=== PATIENT | male | born 1955 | race American Indian/Alaskan Native ===

== ENCOUNTER 2017-06-08 11:18 | Emergency (ER) | payer BC, OTHER ==
[2017-06-08 11:22] VITALS: BP 121/77; PULSE 65; TEMP 97.7; BMI 25.0
[2017-06-08] MEDS ORDERED: KETOROLAC TROMETHAMINE 60 MG/2 ML VIAL IM ONE (12:20)
[2017-06-08] MEDS ORDERED: KETOROLAC TROMETHAMINE 60 MG/2 ML VIAL ONE (12:25)
--- NOTE | 2017-06-08 12:26 | PDOC ---
History of Present Illness - General Chief Complaint: Pain, Acute Stated Complaint: leg pain Time Seen by Provider: 06/08/17 11:58 History Source: Patient, Family Exam Limitations: No Limitations - History of Present Illness Initial Comments: 06/08/17 12:21 c/o pain with radiation down lateral and Posterior aspect of left leg. States has been told some years ago after MRI last year that he had degenerative joint disease of his back and also his left knee. Dr. Gomez was the orthopedist who performed a meniscectomy and scoping at this knee last year but stated would probably be progressive degenerative disease. Patient states one week ago increased some weight lifting at the gym and since that time has had some worsened pain in his low back with radiating to left leg. Denies numbness or tingling to foot, denies any problems with bowel or bladder, denies fevers or other illness. Occurred: reports: last week Severity: reports: moderate, severe Pain Location: reports: lower extremity (left leg ) Loss of Consciousness: no loss of consciousness Associated Symptoms (Fall): denies symptoms Past History - Travel Traveled outside of the country in the last 30 days: No Close contact w/someone who was outside of country & ill: No - Past Medical History Allergies/Adverse Reactions: Allergies Allergy/AdvReac Type Severity Reaction Status Date / Time No Known Allergies Allergy Verified 06/08/17 11:22 Home Medications: Ambulatory Orders Cyclobenzaprine HCl [Flexeril 10 mg] 10 mg PO BID PRN #14 tablet 06/08/17 Insulin Regular [NOVOLIN R VIAL *IVPUSH / ER / ICU Only*] 0 units SQ TID Naproxen [Naprosyn -] 500 mg PO BID #20 tablet 06/08/17 COPD: No Diabetes: Yes Other medical history: sciatica - Suicide/Smoking/Psychosocial Hx Smoking History: Never smoked Information on smoking cessation initiated: No Hx Alcohol Use: No Drug/Substance Use Hx: No Substance Use Type: None Review of Systems - Review of Systems Able to Perform ROS?: Yes Is the patient limited Mohawk proficient: Yes Constitutional: Yes: Symptoms Reported, See HPI, Malaise. No: Fever HEENTM: No: Symptoms Reported Respiratory: Yes: Symptoms reported, See HPI Musculoskeletal: Yes: Symptoms Reported, See HPI, Back Pain, Joint Pain (left knee), Joint Swelling All Other Systems: Reviewed and Negative *Physical Exam - Vital Signs Last Vital Signs Temp Pulse Resp BP Pulse Ox 97.7 F 65 18 121/77 100 06/08/17 11:20 06/08/17 11:20 06/08/17 11:20 06/08/17 11:20 06/08/17 11:20 - Physical Exam General Appearance: Yes: Nourished, Appropriately Dressed HEENT: positive: REN, Normal ENT Inspection, TMs Normal, Pharynx Normal Neck: positive: Supple. negative: Tender Respiratory/Chest: positive: Lungs Clear, Normal Breath Sounds Musculoskeletal: positive: Normal Inspection, Other (tension to lumbar paravertebral spine ). negative: CVA Tenderness (L), Vertebral Tenderness Extremity: positive: Normal Capillary Refill. negative: Normal Range of Motion (limited ROM with ballotment to left superior knee, + dJD changes and tender along lateral and posterior aspect ) Integumentary: positive: Normal Color, Dry, Warm, Pale Neurologic: positive: contact lens polisher II-XII NML intact, Fully Oriented, Alert, Normal Mood/ Affect, Normal Response, Motor Strength 5/5 Progress Note - Progress Note Progress Note: Sciatica, will treat with NSAIDS and cyclobenzaprine, F/U with Dr Rizzo *DC/Admit/Observation/Transfer Diagnosis at time of Disposition: Sciatica of left side - Discharge Dispostion Disposition: HOME Condition at time of disposition: Stable Admit: No - Referrals Referrals: Asa Browning MD [Primary Care Provider] - Titi Rizzo MD [Staff Physician] - - Patient Instructions Printed Discharge Instructions: DI for Sciatica Additional Instructions: Rest, no heavy lifting or exercise until pain is resolved Hot soaks to neck and low back as often as possible/hot showers or Jacuzzis No massage or therapy until spasm is gone Continue Naprosyn 500 mg tablet every 8 hours for the next 3 days then as needed for pain and swelling Cyclobenzaprine 1-10mg every 8 hours as needed for spasm If not significant improvement within 24 hours with medication and rest regime, followup with private physician for change in medications and /or therapy. - Post Discharge Activity Forms/Work/School Notes: Back to Work
== END 2017-06-08 12:38 | disposition home or self-care (01) ==
LOC: JERFT 11:18
PROC: 3E0233Z Introduction of Anti-inflammatory into Muscle, Percutaneous Approach (ICD-10-PCS; principal; 2017-06-08)
DX: M54.42 Lumbago with sciatica, left side (principal)
CPT/HCPCS: 99281-25

== ENCOUNTER 2017-06-21 23:14 | Observation (INO) | payer BC, OTHER ==
[2017-06-21 23:27] VITALS: BMI 25.0
--- NOTE | 2017-06-21 23:41 | PDOC ---
History of Present Illness - General History Source: Patient Exam Limitations: No Limitations - History of Present Illness Initial Comments: 06/21/17 23:52 The patient is a 62 year old male with a significant past medical history of sciatica and diabetes who presents to the ED with complaints of left leg pain for several days. The patient was recently seen in the ED on 06/08 for similar symptoms. He reports sharp left sided left pain starting at his left buttock and radiating down his left leg. He also reports worsening chronic bilateral knee pain and right sided shoulder pain. Patient states he has an appointment with his orthopedist on Thursday. Denies fever or chills. Denies focal numbness, weakness, or tingling. Denies chest pain or shortness of breath. Denies any other symptoms. <Jonelle Fajardo - Last Filed: 06/21/17 23:52> <Marlee Márquez - Last Filed: 06/22/17 02:09> - General Chief Complaint: Pain, Acute Stated Complaint: PAIN Time Seen by Provider: 06/21/17 23:34 Past History <Jonelle Fajardo - Last Filed: 06/21/17 23:52> - Past Medical History COPD: No Diabetes: Yes - Suicide/Smoking/Psychosocial Hx Smoking History: Never smoked Have you smoked in the past 12 months: No Information on smoking cessation initiated: No Hx Alcohol Use: No Drug/Substance Use Hx: No Substance Use Type: None <Marlee Márquez - Last Filed: 06/22/17 02:09> - Past Medical History Allergies/Adverse Reactions: Allergies Allergy/AdvReac Type Severity Reaction Status Date / Time No Known Allergies Allergy Verified 06/21/17 23:22 Home Medications: Ambulatory Orders Insulin Regular [NOVOLIN R VIAL *IVPUSH / ER / ICU Only*] 0 units SQ TID Metformin HCl 500 mg PO DAILY 06/22/17 Review of Systems - Review of Systems Able to Perform ROS?: Yes Comments:: 06/21/17 23:52 CONSTITUTIONAL: Absent: fever, chills, diaphoresis, generalized weakness, malaise, loss of appetite HEENT: Absent: rhinorrhea, nasal congestion, throat pain, throat swelling, difficulty swallowing, mouth swelling, ear pain, eye pain, visual Changes CARDIOVASCULAR: Absent: chest pain, syncope, palpitations, irregular heart rate, lightheadedness , peripheral edema RESPIRATORY: Absent: cough, shortness of breath, dyspnea with exertion, orthopnea, wheezing, stridor, hemoptysis GASTROINTESTINAL: Absent: abdominal pain, abdominal distension, nausea, vomiting, diarrhea, constipation, melena, hematochezia GENITOURINARY: Absent: dysuria, frequency, urgency, hesitancy, hematuria, flank pain, genital pain MUSCULOSKELETAL: + leg pain, knee pain, shoulder pain Absent: joint swelling SKIN: Absent: rash, itching, pallor HEMATOLOGIC/IMMUNOLOGIC: Absent: easy bleeding, easy bruising, lymphadenopathy, frequent infections ENDOCRINE: Absent: unexplained weight gain, unexplained weight loss, heat intolerance, cold intolerance NEUROLOGIC: Absent: headache, focal weakness or paresthesias, dizziness, unsteady gait, seizure, mental status changes, bladder or bowel incontinence PSYCHIATRIC: Absent: anxiety, depression, suicidal or homicidal ideation, hallucinations. All Other Systems: Reviewed and Negative <Jonelle Fajardo - Last Filed: 06/21/17 23:52> *Physical Exam - Vital Signs Last Vital Signs Temp Pulse Resp BP Pulse Ox 98 F 75 20 133/75 95 06/21/17 23:22 06/21/17 23:22 06/21/17 23:22 06/21/17 23:22 06/21/17 23:22 - Physical Exam Comments: 06/21/17 23:52 GENERAL: Well developed, well nourished. Awake and alert. No acute distress. HEENT: Normocephalic, atraumatic. PERRLA, EOMI. No conjunctival pallor. Sclera are non- icteric. Moist mucous membranes. Oropharynx is clear. NECK: Supple. Full ROM. No JVD. Carotid pulses 2+ and symmetric, without bruits. No thyromegaly. NCo lymphadenopathy. CARDIOVASCULAR: Regular rate and rhythm. No murmurs, rubs, or gallops. Distal pulses are 2+ and symmetric. PULMONARY: No evidence of respiratory distress. Lungs clear to auscultation bilaterally. No wheezing, rales or rhonchi. ABDOMINAL: Soft. Non-tender. Non-distended. No rebound or guarding. No organomegaly. Normoactive bowel sounds. MUSCULOSKELETAL: + chronic right shoulder pain, pain from left buttock radiating down left leg Normal range of motion at all joints. No bony deformities or tenderness. No CVA tenderness. EXTREMITIES: No cyanosis. No clubbing. No edema. No calf tenderness. SKIN: Warm and dry. Normal capillary refill. No rashes. No jaundice. NEUROLOGICAL: Alert, awake, appropriate. Cranial nerves 2-12 intact. No deficits to light touch and temperature in face, upper extremities and lower extremities. No motor deficits in the in face, upper extremities and lower extremities. Normoreflexic in the upper and lower extremities. Normal speech. Toes are down- going bilaterally. Gait is normal without ataxia. PSYCHIATRIC: Cooperative. Good eye contact. Appropriate mood and affect. <Jonelle Fajardo - Last Filed: 06/21/17 23:52> - Vital Signs Last Vital Signs Temp Pulse Resp BP Pulse Ox 98 F 75 20 133/75 95 06/21/17 23:22 06/21/17 23:22 06/21/17 23:22 06/21/17 23:22 06/21/17 23:22 <Marlee Márquez - Last Filed: 06/22/17 02:09> ED Treatment Course - LABORATORY CBC & Chemistry Diagram: 06/22/17 01:00 06/22/17 01:00 <Marlee Márquez - Last Filed: 06/22/17 02:09> *DC/Admit/Observation/Transfer - Attestations Scribe Attestion: 06/21/17 23:53 Documentation prepared by Jonelle Fajardo, acting as medical billing associate for Marlee Márquez MD <Jonelle Fajardo - Last Filed: 06/21/17 23:52> - Discharge Dispostion Admit: Yes <Marlee Márquez - Last Filed: 06/22/17 02:09> Diagnosis at time of Disposition: Sciatica of left side, Intractable low back pain - Referrals Referrals: Asa Browning MD [Primary Care Provider] - - Patient Instructions - Post Discharge Activity
[2017-06-21] MEDS ORDERED: KETOROLAC TROMETHAMINE 60 MG/2 ML VIAL IM ONE (23:44)
[2017-06-21] MEDS ORDERED: diazePAM 2 MG TABLET PO ONE (23:45)
[2017-06-21] MEDS ORDERED: diazePAM 2 MG TABLET ONE (23:57)
[2017-06-21] MEDS ORDERED: KETOROLAC TROMETHAMINE 60 MG/2 ML VIAL ONE (23:57)
[2017-06-22 01:12] LABS: BASOPHIL 0.6 % (0-2.0); EOSINOPHIL 2.1 % (0-4.5); MCHC 33.8 g/dl (32.0-35.9); MEAN CELL VOLUME 88.7 fl (80-96); MEAN PLT VOLUME 9.1 fl (7.5-11.1); NEUTROPHILS 70.9 % (42.8-82.8); PLATELET COUNT 205 K/MM3 (134-434); RDW 12.2 % (11.9-15.9); WHITE BLOOD COUNT 10.1 K/mm3 (4.0-10.0)
[2017-06-22 01:25] LABS: INR 1.18 (0.82-1.09); PROTHROMBIN TIME (PATIENT) 13.3 SEC (9.98-11.88)
[2017-06-22 02:02] LABS: ALBUMIN 3.3 g/dl (3.4-5.0); ALK PHOS 84 U/L (45-117); ANION GAP 6 (8-16); BILIRUBIN,TOTAL 0.3 mg/dL (0.2-1.0); CALCIUM 8.7 mg/dL (8.5-10.1); CO2 32 mmol/L (21-32); CREATININE 0.8 mg/dL (0.7-1.3); GLUCOSE,RANDOM 220 mg/dL (74-106); SGOT/AST 15 U/L (15-37); SGPT/ALT 24 U/L (12-78); TOT PROT 6.6 g/dl (6.4-8.2)
--- NOTE | 2017-06-22 02:24 | PN ---
Teaching Attending Note Name of Resident: Paxton Mccann ATTENDING PHYSICIAN STATEMENT I saw and evaluated the patient. I reviewed the resident's note and discussed the case with the resident. I agree with the resident's findings and plan as documented. SUBJECTIVE: 62 yo M with pmhx of Sciatica and DM who presents with Left lower back pain radiating down his leg. States pain is sharp and 10/10. Does not note any recent injuries. Also has chronic pain in his bilateral knes and right shoulder. No chest pain, pressure or shortnes of breath. No loss of bowel or bladder function. No fevers or chills. OBJECTIVE: Physical: Vs: Vital Signs Period Temp Pulse Resp BP Sys/Howard Pulse Ox Last 24 Hr 98 F-98.5 F 62-75 16-20 110-133/60-75 95-95 GEN: NAD, resting in bed, AAoX3 HEENT: NCAT, PERRL, Throat without erythema or exudates CARD: RRR S1, S2 RESP: CTAB ABD: BSx4, NTD to palpation EXT: Left leg MS +3/5, unable to do straight leg raise without pain, RLE - C/C/E CBCD WBC 10.1 K/mm3 (4.0-10.0) H 06/22/17 01:00 RBC 4.72 M/mm3 (4.00-5.60) 06/22/17 01:00 Hgb 14.1 GM/dL (11.7-16.9) 06/22/17 01:00 Hct 41.9 % (35.4-49) 06/22/17 01:00 MCV 88.7 fl (80-96) 06/22/17 01:00 MCHC 33.8 g/dl (32.0-35.9) 06/22/17 01:00 RDW 12.2 % (11.9-15.9) 06/22/17 01:00 Plt Count 205 K/MM3 (134-434) 06/22/17 01:00 MPV 9.1 fl (7.5-11.1) 06/22/17 01:00 CMP Sodium 139 mmol/L (136-145) 06/22/17 01:00 Potassium 4.0 mmol/L (3.5-5.1) 06/22/17 01:00 Chloride 101 mmol/L (98-107) 06/22/17 01:00 Carbon Dioxide 32 mmol/L (21-32) 06/22/17 01:00 Anion Gap 6 (8-16) L 06/22/17 01:00 BUN 11 mg/dL (7-18) 06/22/17 01:00 Creatinine 0.8 mg/dL (0.7-1.3) 06/22/17 01:00 Creat Clearance w eGFR > 60 (>60) 06/22/17 01:00 Random Glucose 220 mg/dL (74-106) H 06/22/17 01:00 Calcium 8.7 mg/dL (8.5-10.1) 06/22/17 01:00 Total Bilirubin 0.3 mg/dL (0.2-1.0) 06/22/17 01:00 AST 15 U/L (15-37) 06/22/17 01:00 ALT 24 U/L (12-78) 06/22/17 01:00 Alkaline Phosphatase 84 U/L (45-117) 06/22/17 01:00 Total Protein 6.6 g/dl (6.4-8.2) 06/22/17 01:00 Albumin 3.3 g/dl (3.4-5.0) L 06/22/17 01:00 EKG: NSR ASSESSMENT AND PLAN: 62 yo M with pmhx of Sciatica and DM who presents with Left lower back pain radiating down his leg 1.) Left Leg Pain DDx: Sciatica vs. Lumbar disc disease - MRI L/S spine - Ortho consulted 2.) DM - FS - RAISS 3.) Dvt ppx - Low Risk-Scds Place in Obs
--- NOTE | 2017-06-22 02:38 | HP ---
CHIEF COMPLAINT: LLE pain PCP: HISTORY OF PRESENT ILLNESS: 62yo M with a history of DM (on 40U insulin HS and metformin) and known sciatica who presents to the ED with LLE pain for several days. Pt describes pain as starting in L posterior hip with radiation down through his leg to his ankle. Pt was preivously here on 06/08/17 with the same type of pain and was sent home with an outpatient f/u to see Dr. Rizzo. Pt now reports the pain has increased to the point where he has slight limitations in walking. Pt normally walks without any assistance. Pt denies fever/chills, loss of sensations, urinary difficulties, difficulties with BM (with last BM being yesterday normal in character without blood), CP/discomfort, SOB. ER course was notable for: (1) Toradol 60 Injection x1; Morphine 4mg x1 PAST MEDICAL HISTORY: DM Sciatica PAST SURGICAL HISTORY: L knee meniscuscopy L tendon repair Social History: Smoking: Denies Alcohol: Denies Drugs: Denies Family History: Deferred Allergies No Known Allergies Allergy (Verified 06/21/17 23:22) HOME MEDICATIONS: Home Medications Medication Instructions Recorded Insulin Regular [NOVOLIN R VIAL 0 units SQ TID 06/08/17 *IVPUSH / ER / ICU Only*] Metformin HCl 500 mg PO DAILY 06/22/17 REVIEW OF SYSTEMS CONSTITUTIONAL: Absent: fever, chills, diaphoresis, malaise, loss of appetite, weight change HEENT: Absent: rhinorrhea, nasal congestion, throat pain, throat swelling, difficulty swallowing, mouth swelling, ear pain, eye pain, visual changes CARDIOVASCULAR: Absent: chest pain, syncope, palpitations, irregular heart rate, lightheadedness , peripheral edema RESPIRATORY: Absent: cough, shortness of breath, dyspnea with exertion, orthopnea, wheezing, stridor, hemoptysis GASTROINTESTINAL: Absent: abdominal pain, abdominal distension, nausea, vomiting, diarrhea, constipation, melena, hematochezia GENITOURINARY: Absent: dysuria, frequency, urgency, hesitancy, hematuria, flank pain, genital pain MUSCULOSKELETAL: Absent: myalgia, arthralgia, joint swelling, back pain, neck pain ENDOCRINE: Absent: unexplained weight gain, unexplained weight loss, heat intolerance, cold intolerance NEUROLOGIC: Present: Weakness, unsteady gait Absent: headache, paresthesias, dizziness, seizure, mental status changes, bladder or bowel incontinence PSYCHIATRIC: Absent: anxiety, depression, suicidal or homicidal ideation, hallucinations. PHYSICAL EXAMINATION Vital Signs - 24 hr 06/21/17 06/22/17 23:22 02:28 Temperature 98 F 98.5 F Pulse Rate 75 Pulse Rate [ 62 Radial] Respiratory 20 16 Rate Blood Pressure 133/75 Blood Pressure 110/60 [Left Arm] O2 Sat by Pulse 95 95 Oximetry (%) GENERAL: NAD, Awake, alert, and fully oriented HEENT: NC/AT, No JVD, moist mucosa, no scleral icterus or injections noted LUNGS: CTA bilaterally. No wheezes, rhonchi, rales. No accessory muscle use. HEART: RRR, normal S1 and S2 without murmur ABDOMEN: Soft, nontender, nondistended, normoactive bowel sounds, no guarding. No hepatomegaly. MUSCULOSKELETAL: Normal range of motion at all joints. No bony deformities or tenderness. No CVA tenderness. EXTREMITIES: 2+ DP pulses, warm, no peripheral edema. NEUROLOGICAL: Nonfocal. Normal speech. Strength 4/5 in L leg flexion compared to 5/5 in R limited due to pain. 5/5 in dorsal and plantar flexion b/l. Sensation intact b/l PSYCHIATRIC: Cooperative. Good eye contact. Appropriate mood and affect. SKIN: Warm, no rashes or lesions noted Laboratory Results - last 24 hr 06/22/17 06/22/17 06/22/17 01:00 01:00 01:00 WBC 10.1 H RBC 4.72 Hgb 14.1 Hct 41.9 MCV 88.7 MCH 30.0 MCHC 33.8 RDW 12.2 Plt Count 205 MPV 9.1 Neutrophils % 70.9 Lymphocytes % 18.6 Monocytes % 7.8 Eosinophils % 2.1 Basophils % 0.6 PT with INR 13.30 H INR 1.18 H Sodium 139 Potassium 4.0 Chloride 101 Carbon Dioxide 32 Anion Gap 6 L BUN 11 Creatinine 0.8 Creat Clearance w eGFR > 60 Random Glucose 220 H Calcium 8.7 Total Bilirubin 0.3 AST 15 ALT 24 Alkaline Phosphatase 84 Total Protein 6.6 Albumin 3.3 L ASSESSMENT/PLAN: 62yo M with a history of DM (on 40U insulin HS and metformin) and known sciatica found to have increased LLE pain. MRI awaiting. 1) L sciatica vs. DDD (degen disc dz) --Pain control with 0.5mg Morphine IVP q6 PRN (6-10 pain scale) --Lumbar Spine MRI w/o contrast --Ortho consulted --Pt had outpt office visit planned for Friday 06/22 2) DM --BGM ACHS --ISS Coverage FEN: Fluids: tolerating PO; not indicated Electrolyte abnormalities: None currently Nutrition: Diabetic diet PPx DVT - low - early ambulation/SCDs Dispo: place in obs Visit type - Emergency Visit Emergency Visit: Yes ED Registration Date: 06/22/17 Care time: The patient presented to the Emergency Department on the above date and was hospitalized for further evaluation of their emergent condition. - New Patient This patient is new to me today: Yes Date on this admission: 06/22/17 - Critical Care Critical Care patient: No
[2017-06-22] MEDS ORDERED: KETOROLAC TROMETHAMINE 30 MG/1 ML VIAL IM PRN (02:41)
[2017-06-22] MEDS ORDERED: morphine SULFATE 4 MG/ML VIAL IVPUSH ONE (02:47)
[2017-06-22] MEDS ORDERED: morphine SULFATE 4 MG/ML VIAL IVPUSH PRN (02:48)
[2017-06-22] MEDS ORDERED: diphenhydrAMINE HCL 25 MG CAPSULE (FP) PO ONE (04:37)
[2017-06-22] MEDS: INSULIN SLIDING SCALE (NOVOLOG) 1 VIAL SQ SCH ×4 (06:46→21:04)
[2017-06-22] MEDS ORDERED: diazePAM 2 MG TABLET PO ONE (06:55)
[2017-06-22] MEDS ORDERED: metFORMIN HCL 500 MG TABLET (FP) PO SCH (07:00)
[2017-06-22] MEDS ORDERED: ACETAMINOPHEN 325 MG TABLET (FP) PO PRN (07:58)
--- NOTE | 2017-06-22 08:42 | CON.ORTH ---
Consult Reason for Consultation:: LBP, left hip, left knee pain - Alcohol/Substance Use Hx Alcohol Use: No - Smoking History Smoking history: Never smoked Have you smoked in the past 12 months: No Aproximately how many cigarettes per day: 0 Home Medications - Allergies Allergies/Adverse Reactions: Allergies Allergy/AdvReac Type Severity Reaction Status Date / Time No Known Allergies Allergy Verified 06/21/17 23:22 - Home Medications Home Medications: Ambulatory Orders Diclofenac Sodium [Vopac Mds] 500 tab PO TID 06/22/17 Insulin Glargine,Hum.rec.anlog [Lantus (nf)] 40 units SQ HS 06/22/17 Metformin HCl 500 mg PO DAILY 06/22/17 Physical Exam for Ortho Vital Signs: Vital Signs Temperature 98.3 F 06/22/17 04:27 Pulse Rate 65 06/22/17 04:27 Respiratory Rate 18 06/22/17 04:27 Blood Pressure 116/65 06/22/17 04:27 O2 Sat by Pulse Oximetry (%) 95 06/22/17 02:28 Labs: CBC, BMP 06/22/17 01:00 06/22/17 01:00 INR, PTT INR 1.18 (0.82-1.09) H 06/22/17 01:00 - Lower Extremity Hip: Yes: Left, Decreased ROM, Pain, Swelling, Other (nvi) Knee: Yes: Left, Limited ROM, Pain, Swelling, Tenderness, Other (nvi) Assessment/Plan 62 year old male with a significant past medical history of sciatica and diabetes who presents to the ED with complaints of left leg pain for several days. The patient was recently seen in the ED on 06/08 for similar symptoms. He reports sharp left sided left pain starting at his left buttock and radiating down his left leg. He also reports worsening left knee pain in which he had surgery on years ago. Pt states that currently his knee is causing more pain. Denies and bowel/bladder dysfunction. 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 a/p- Left hip and knee pain- possible DJD, L4-5 HNP xrays of hip and knee ordered LS MRI pain control PT eval will follow after imaging performed d/w Dr. Rizzo
[2017-06-22] MEDS: oxyCODONE HCL 5 MG TABLET PO PRN ×3 (10:50→22:52)
[2017-06-22 11:58] LABS: URINE APPEARANCE SLCLOUDY; URINE BILIRUBIN NEGATIVE (NEGATIVE); URINE BLOOD NEGATIVE (NEGATIVE); URINE COLOR YELLOW; URINE GLUCOSE (UA) 1+ (NEGATIVE); URINE KETONE TRACE (NEGATIVE); URINE LEUK ESTERASE NEGATIVE (NEGATIVE); URINE NITRITE NEGATIVE (NEGATIVE); URINE PROTEIN NEGATIVE (NEGATIVE); URINE UROBILINOGEN NEGATIVE mg/dL (0.2-1.0)
--- NOTE | 2017-06-22 14:56 | EKG ---
Test Reason : Blood Pressure : / mmHG Vent. Rate : 068 BPM Atrial Rate : 068 BPM P-R Int : 172 ms QRS Dur : 084 ms QT Int : 386 ms P-R-T Axes : 064 076 053 degrees QTc Int : 410 ms NORMAL SINUS RHYTHM NORMAL ECG WHEN COMPARED WITH ECG OF 04-MAY-2007 21:17, NO SIGNIFICANT CHANGE WAS FOUND Confirmed by NATTY SCOTT MD ([id number]) on 06/22/2017 2:56:00 PM Referred By: Confirmed By:NATTY SCOTT MD
[2017-06-22 15:58] LABS: URINE LEUK ESTERASE NEGATIVE (NEGATIVE)
[2017-06-22] MEDS ORDERED: diazePAM 5 MG TABLET PO ONE (19:00)
[2017-06-22] MEDS ORDERED: MELATONIN 5 MG TABLETS PO PRN (20:05)
[2017-06-22] MEDS ORDERED: INSULIN (NOVOLOG) ASPART 100 UNITS/ML 10ML VIAL ONE (20:35)
[2017-06-23] MEDS: INSULIN SLIDING SCALE (NOVOLOG) 1 VIAL SQ SCH ×3 (06:48→17:42)
[2017-06-23] MEDS: oxyCODONE HCL 5 MG TABLET PO PRN (08:37)
[2017-06-23] MEDS ORDERED: PT OWN MED DRAWER 7, Y5N ONE (12:10)
[2017-06-23] MEDS ORDERED: INSULIN (NOVOLOG) ASPART 100 UNITS/ML 10ML VIAL ONE (12:11)
--- NOTE | 2017-06-23 14:48 | PN ---
Progress Note (short form) - Note Progress Note: Ortho Pt seen and examined feeling slightly better today MRI- L3-4 stenosis, hnp, L4-5 stenosis, hnp left knee- severe grade 4 medial djd left hip- mild djd a/p d/w pt and in detail pain management possible injection for LS spine cortisone injection for left knee, can be done as outpt november d/c from ortho pov d/w Dr. Rizzo
[2017-06-23 14:59] VITALS: BP 128/71; PULSE 77; TEMP 98.6
--- NOTE | 2017-06-23 16:17 | DS ---
Physical Exam: SUBJECTIVE: Patient seen and examined. His pain is now constant, however tolerable, he is able to stand and ambulate with assistance. OBJECTIVE: Vital Signs Period Temp Pulse Resp BP Sys/Howard Pulse Ox Last 24 Hr 98 F-98.6 F 63-88 18-20 106-133/63-71 96-96 Pe Neuro: alert, awake, cn 2-12intact Pulm: CTAB CV: s1 s2 rrr no mrg Abd: s nt nd + bs Ext: L knee medial swelling, + mild tenderness MSK: L posterior pelvic tenderness referring down quad to knee, no swelling Laboratory Results - last 24 hr 06/22/17 06/22/17 06/23/17 18:02 20:55 06:47 POC Glucometer 178 256 142 06/23/17 12:08 POC Glucometer 354 HOSPITAL COURSE: Date of Admission:06/22/17 Date of Discharge: 06/23/17 Minutes to complete discharge: 38 Discharge Summary Reason For Visit: SCIATICA Hospital Course: Initial Hospital Course: Briefly, this 62 year old male with a history of DM (on 40U insulin HS and metformin) and known sciatica presented to the ED with LLE pain for several days. Pt described pain as starting in L posterior hip with radiation down through his leg to his ankle. Pt was previously seen on 06/08/17 with the same type of pain and was sent home with an outpatient f/u to see Dr. Rizzo. Pain had increased to the point where his ambulation is limited. Pt normally walks without any assistance. Imaging: MRI- L3-4 stenosis, hnp, L4-5 stenosis, hnp, mod stenosis and compression, chronic changes left knee- left hip- mild djd Subsequent Hospital Course/Progress Note/DC summary: Plan: 1. Sciatica, spinal stenosis L3-L4, L4-L5 - Pain management referral and appt made with Dr. Cody eBll for 06/24/17 @1565 , D/w Dr. Bell he is aware, can see pt in office for further eval and treatment of possible injection to LS spine 2. L knee - severe grade 4 medial djd - Cortisone injection as outpt, pt referred to Dr. Rizzo office for 1300 as instructed by MOO Ellis for 06/23/17 in office, pt and aware and agree 3. DM II - Resume home DM regimen Dispo: - Home with out referrals and appts made, pt and aware and agree to above plan Condition: Stable - Instructions Diet, Activity, Other Instructions: Please return to the ED for any new, worsening, or persistent, symptoms. Follow up with PCP in 1 week. Tomorrow go to Dr. Rizzo's at 1pm for knee injection Keep scheduled appt with Dr. Bell at 3:45pm. Bring your insurance information and identification cards to appt Phone numbers and addresses enclosed in DC paper work Referrals: Asa Browning MD [Primary Care Provider] - Titi Rizzo MD [Staff Physician] - Cody Bell MD [Staff Physician] - 06/24/17 3:45 pm Disposition: HOME - Home Medications Comprehensive Discharge Medication List: Ambulatory Orders Diclofenac Sodium [Vopac Mds] 500 tab PO TID 06/22/17 Insulin Glargine,Hum.rec.anlog [Lantus (10mL VIAL) -] 40 units SQ HS 06/22/17 Metformin HCl 500 mg PO DAILY 06/22/17 Melatonin 5 mg PO HS #30 capsule 06/23/17 Oxycodone HCl/Acetaminophen [Percocet 5-325 mg Tablet] 1 tab PO Q6H PRN #12 tablet MDD 4 06/23/17 This patient is new to me today: Yes Date on this admission: 06/24/17 Emergency Visit: Yes ED Registration Date: 06/22/17 Care time: The patient presented to the Emergency Department on the above date and was hospitalized for further evaluation of their emergent condition. Critical Care patient: No - Discharge Referral Referred to [facility] No
== END 2017-06-23 18:21 | disposition home or self-care (01) ==
LOC: JER 23:14 → J7W 06-22 02:10 → JER 06-22 02:58 → J7W 06-22 05:15
PROVIDERS: ADMIT Internal Medicine; ATTEND Nurse Practitioner Acute Care
PROC: 3E0233Z Introduction of Anti-inflammatory into Muscle, Percutaneous Approach (ICD-10-PCS; principal; 2017-06-22)
PROC: 3E033NZ Introduction of Analgesics, Hypnotics, Sedatives into Peripheral Vein, Percutaneous Approach (ICD-10-PCS; 2017-06-22)
PROC: 3E013VG Introduction of Insulin into Subcutaneous Tissue, Percutaneous Approach (ICD-10-PCS; 2017-06-22)
DX: M54.42 Lumbago with sciatica, left side (principal); M48.061 Spinal stenosis, lumbar region without neurogenic claudication; E11.9 Type 2 diabetes mellitus without complications; Z79.4 Long term (current) use of insulin; Z79.84 Long term (current) use of oral hypoglycemic drugs
CPT/HCPCS: 36415; 72148-TC; 73523-TC; 73562-TC-LT; 80053; 81003; 85025; 85610; 93005; 93010; 97116-GP; 97161-GP; 99285-25; G0378